=== PATIENT | male | born 1930 | race American Indian/Alaskan Native ===

== ENCOUNTER 2020-12-01 18:13 | Emergency (ER) | payer SELFPAY ==
[2020-12-01] MEDS ORDERED: ACETAMINOPHEN 325 MG TAB PO ONE (20:13)
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
--- NOTE | 2020-12-01 21:14 | XRay Report ---
Chest with right RIBS 4 views. HISTORY: Posterior rib pain. FINDINGS: Cardiomegaly is mild. The aorta is tortuous and ectatic. Interstitial markings are increase d diffusely. Slightly more localized opacity is seen at the right base. A small right effusion is not ed. Mild irregularity is seen at the posterior lateral aspect of the right seventh rib. This is suspiciou s for a nondisplaced fracture. An eighth rib fracture may also be present. Signer Name: Miguelito Darden MD Signed: 12/01/2020 9:09 PM Workstation Name: [id number]
--- NOTE | 2020-12-01 23:00 | Cat Scan Report ---
CT chest wo con HISTORY: Post-fall, now with RIGHT posterior rib pain, abnormal XR COMPARISON: 12/01/2020 radiograph TECHNIQUE: Chest CT exam. All CT scans at this location are performed using CT dose reduction for ALA RA by means of automated exposure control. FINDINGS: CT CHEST: Lungs: There is bilateral pulmonary scarring. Interlobular septal thickening. Trace right effusion.. Trachea and Bronchi: No significant abnormality. Mediastinum/Lymph nodes: No lymphadenopathy. Heart: Enlarged. Multivessel coronary atherosclerotic calcifications. Vasculature: No significant abnormality. Osseous Structures: Posterior right 5 to 8 rib fractures. No aggressive appearing osseous lesions. Additional Findings: Small sliding-type hiatal hernia. Bilateral renal cysts. IMPRESSION: 1. Posterior nondisplaced 5th to 8th left eighth rib fractures. 2. Interstitial edema with trace right pleural effusion. Signer Name: Lul Bansal MD Signed: 12/01/2020 10:56 PM Workstation Name: [id number]
[2020-12-01] MEDS ORDERED: MORPHINE 4 MG/1 ML INJ IV ONE (23:11)
[2020-12-01] MEDS ORDERED: ONDANSETRON 4 MG/2 ML INJ IV ONE (23:11)
[2020-12-01 23:58] VITALS: BP 167/85
== END 2020-12-02 00:06 | disposition other institution (70) ==
LOC: EDSEX → ED 18:13
DX: S22.41XA Multiple fractures of ribs, right side, initial encounter for closed fracture (principal); I11.0 Hypertensive heart disease with heart failure; I50.9 Heart failure, unspecified; E11.9 Type 2 diabetes mellitus without complications; Z86.73 Personal history of transient ischemic attack (TIA), and cerebral infarction without residual deficits; Z79.899 Other long term (current) drug therapy; W01.0XXA Fall on same level from slipping, tripping and stumbling without subsequent striking against object, initial encounter; Y93.89 Activity, other specified; Y92.89 Other specified places as the place of occurrence of the external cause; Y99.8 Other external cause status
CPT/HCPCS: 71101; 71250; 96374; 96375; 99285; J2270; J2405